=== PATIENT | female | born 1945 | race Caucasian/White ===

== ENCOUNTER → 2020-11-27 | Outpatient (CLI) | payer BC, MEDICARE | END | disposition home or self-care (01) | LOC: CFH 08:31 | PROVIDERS: ATTEND Nurse Practitioner Family | DX: I08.3 Combined rheumatic disorders of mitral, aortic and tricuspid valves (principal); I11.9 Hypertensive heart disease without heart failure | CPT/HCPCS: 93306 ==

== ENCOUNTER 2021-01-05 12:43 | Outpatient (CLI) | payer BC, MEDICARE ==
[~2021-01-05 12:43] MED LIST: REGADENOSON 0.4 MG/5 ML SYRINGE ONE
== END 2021-01-05 23:59 | disposition home or self-care (01) ==
LOC: CFH 12:43
PROVIDERS: ATTEND Internal Medicine Cardiovascular Disease
DX: Z01.810 Encounter for preprocedural cardiovascular examination (principal)
CPT/HCPCS: 78452; 93017; A9502; J2785